=== PATIENT | female | born 1970 | race Caucasian/White ===

== ENCOUNTER 2016-12-21 18:13 | Emergency (ER) | payer SELFPAY ==
[~2016-12-21] VITALS: Ht 165.1 cm; Wt 56.7 kg
[2016-12-21 18:18] VITALS: BP 100/61
== END 2016-12-21 19:27 | disposition home or self-care (01) ==
LOC: ER 18:15
DX: J06.9 Acute upper respiratory infection, unspecified (principal); J45.909 Unspecified asthma, uncomplicated; Z88.8 Allergy status to other drugs, medicaments and biological substances; F17.200 Nicotine dependence, unspecified, uncomplicated
CPT/HCPCS: 99283; A4606; Z7610

== ENCOUNTER 2022-08-28 17:22 | Emergency (ER) | payer OTHER ==
[~2022-08-28] VITALS: Ht 167.6 cm; Wt 72.6 kg
[2022-08-28 17:33] VITALS: BP 116/74
--- NOTE | 2022-08-28 17:40 | NUR ---
STACIE [id number] Escorted by [facility] Officer [place]ami[place] [id number] OTB "Drugs found in rectum. while doing a strip search"
--- NOTE | 2022-08-28 21:55 | NUR ---
DR LEONORA YU AT PT'S BEDSIDE FOR PELVIC EXAM WITH FEMALE RN [employer] TECH[employer]OLOG[employer]
--- NOTE | 2022-08-28 22:10 | NUR ---
Patient discharged to [employer] custody in stable condition for OTB. Written and verbal after care instructions given. Patient verbalizes understanding of instruction.
== END 2022-08-28 22:10 ==
LOC: ER 17:35
DX: T19.2XXA Foreign body in vulva and vagina, initial encounter (principal); J45.909 Unspecified asthma, uncomplicated; Z88.8 Allergy status to other drugs, medicaments and biological substances; F17.200 Nicotine dependence, unspecified, uncomplicated; X58.XXXA Exposure to other specified factors, initial encounter; Y93.89 Activity, other specified; Y92.89 Other specified places as the place of occurrence of the external cause; Y99.8 Other external cause status